=== PATIENT | male | born 1990 ===

== ENCOUNTER 2016-09-13 04:05 | Emergency (ER) | payer OTHER ==
[2016-09-13 04:14] VITALS: BP 140/84; PULSE 74; RESP 17; TEMP 98.2; O2SAT 100
--- NOTE | 2016-09-13 04:37 | ED PDOC ---
HPI: General Adult Time Seen by Provider: 09/13/16 04:25 Chief Complaint (Nursing): Medical Clearance Chief Complaint (Provider): clearance for incarceration History Per: Patient History/Exam Limitations: no limitations Additional History Per: Patient Additional Complaint(s): 25 y/o male brought in by police with blood kit for suspected DUI. Patient denies acute medical or psychiatric complaints. Past Medical History Reviewed: Historical Data, Nursing Documentation, Vital Signs Vital Signs: Last Vital Signs Temp 98.2 F 09/13/16 04:08 Pulse 74 09/13/16 04:08 Resp 17 09/13/16 04:08 BP 140/84 09/13/16 04:08 Pulse Ox 100 09/13/16 04:37 - Medical History PMH: No Chronic Diseases - Surgical History Surgical History: No Surg Hx - Family History Family History: States: Unknown Family Hx - Social History Current smoker - smoking cessation education provided: Yes Alcohol: Social Drugs: Cannabis - Allergies Allergies/Adverse Reactions: Allergies Allergy/AdvReac Type Severity Reaction Status Date / Time No Known Allergies Allergy Verified 09/13/16 04:33 Review of Systems ROS Statement: Except As Marked, All Systems Reviewed And Found Negative Physical Exam - Reviewed Nursing Documentation Reviewed: Yes Vital Signs Reviewed: Yes - Physical Exam Appears: Positive for: Well, Non-toxic, No Acute Distress Head Exam: Positive for: ATRAUMATIC, NORMAL INSPECTION, NORMOCEPHALIC Skin: Positive for: Normal Color Eye Exam: Positive for: Normal appearance Cardiovascular/Chest: Positive for: Regular Rate, Rhythm Respiratory: Positive for: Normal Breath Sounds Gastrointestinal/Abdominal: Positive for: Normal Exam Back: Positive for: Normal Inspection Extremity: Positive for: Normal ROM Neurologic/Psych: Positive for: Alert, Oriented - ECG O2 Sat by Pulse Oximetry: 100 Disposition - Clinical Impression Clinical Impression: Blood drug testing for medicolegal reasons - Patient ED Disposition Is Patient to be Admitted: No Counseled Patient/Family Regarding: Diagnosis, Need For Followup - Disposition Disposition: Routine/Home Disposition Time: 04:55 Condition: STABLE
== END 2016-09-13 04:59 ==
LOC: H.ER 04:05
DX: Z02.83 Encounter for blood-alcohol and blood-drug test (principal)

== ENCOUNTER 2018-05-19 17:57 | Emergency (ER) | payer OTHER ==
--- NOTE | 2018-05-19 19:42 | ED PDOC ---
Upper Extremity Pain/Injury Time Seen by Provider: 05/19/18 19:14 Chief Complaint (Nursing): Upper Extremity Problem/Injury Chief Complaint (Provider): Right arm pain Additional Complaint(s): 27 y/o M with no PMH who presents with redness and pain on Right arm. Pt states that he got a new tattoo on his Right arm about 1.5 weeks ago. He has developed some bumps that he believes were due to in-grown hairs in the area that he was shaved. About 3 days ago he felt a sharp sting in his Right arm and noticed some redness the following day but woke up this morning with much more redness and swelling. Denies fevers, chills, night sweats. He states that he had clear drainage from the area. Denies pus. No hand numbness or tingling. Past Medical History Reviewed: Historical Data, Nursing Documentation, Vital Signs Vital Signs: Last Vital Signs Temp 98.3 F 05/19/18 18:29 Pulse 69 05/19/18 18:29 Resp 16 05/19/18 18:29 BP 140/90 05/19/18 18:29 Pulse Ox 99 05/19/18 18:29 - Medical History PMH: No Chronic Diseases - Family History Family History: States: Unknown Family Hx - Home Medications Home Medications: Ambulatory Orders Medication Instructions Recorded Cephalexin [cephalexin] 500 mg PO QID 5 Days cap 05/19/18 - Allergies Allergies/Adverse Reactions: Allergies Allergy/AdvReac Type Severity Reaction Status Date / Time No Known Allergies Allergy Verified 09/13/16 04:33 Physical Exam - Reviewed Nursing Documentation Reviewed: Yes Vital Signs Reviewed: Yes - Physical Exam Appears: Positive for: Non-toxic Pulses-Radial (R): 2+ Extremity: Positive for: Other (area of erythema and swelling on posterior aspect of Right arm close to wrist with central lesion. No fluid able to be expressed. + induration, no fluctuance. ) Neurologic/Psych: Positive for: Alert, Oriented - ECG O2 Sat by Pulse Oximetry: 99 Medical Decision Making Medical Decision Making: Likely mild cellulitis, no evidence of abscess. Pt advised to complete course of PO antibiotics and return instructions given. Disposition - Clinical Impression Clinical Impression: Cellulitis - Patient ED Disposition Is Patient to be Admitted: No - Disposition Referrals: Houston Thompson MD [Staff Provider] - Disposition: Routine/Home Disposition Time: 20:04 Condition: STABLE Additional Instructions: Return to ER if you start to develop worsening redness or white/yellow drainage or if you develop fevers. F/u with primary care doctor for routine care. Keep area clean. Prescriptions: Cephalexin [cephalexin] 500 mg PO QID 5 Days cap Instructions: Cellulitis (Skin Infection), Adult (DC) Forms: [facility] (Kazakh) Print Language: [email or web address]
[2018-05-19 20:05] VITALS: BP 138/75; PULSE 68; RESP 18; TEMP 98.8
[2018-05-21 13:22] VITALS: O2SAT 99
== END 2018-05-19 20:04 | disposition home or self-care (01) ==
LOC: H.ER 17:57
DX: L03.113 Cellulitis of right upper limb (principal)